=== PATIENT | female | born 1995 | race Caucasian/White ===

== ENCOUNTER 2017-06-20 14:26 | Emergency (ER) | payer OTHER ==
[~2017-06-20] VITALS: Ht 157.5 cm; Wt 43.5 kg
[2017-06-20] MEDS ORDERED: ZANTAC300 MG (14:33)
[2017-06-20] MEDS ORDERED: RITALIN20 MG (14:33)
== END 2017-06-20 17:02 | disposition home or self-care (01) ==
LOC: ER 14:26
DX: B36.8 Other specified superficial mycoses (principal)